=== PATIENT | female | born 2000 | race Two or more races ===

== ENCOUNTER 2025-02-15 09:57 | Outpatient (CLI) | payer OTHER ==
[~2025-02-15] VITALS: Ht 165.1 cm; Wt 91.0 kg
[~2025-02-15 09:57] MED LIST: ALBUTEROL SULFATE 2.5 MG/0.5 ML INH CONCENTRATE NEB SOLN INH PRN; EPINEPHrine INJ 1 MG/ML 1ML AMP IM PRN; diphenhydrAMINE 50 MG/ML VIAL IV PRN
[2025-02-15 10:30] VITALS: BP 120/77; O2SAT 100
[2025-02-15] MEDS: IRON SUCROSE 200 MG IVP IV ONE (11:08)
[2025-02-15 12:00] VITALS: BP 119/67; O2SAT 100
== END 2025-02-15 12:00 ==
LOC: M INFU 09:57
PROVIDERS: ATTEND Nurse Practitioner Family
DX: D64.9 Anemia, unspecified (principal)
CPT/HCPCS: 96374; J1756

== ENCOUNTER → 2025-03-06 | Outpatient (REF) | payer OTHER | LOC: M PLALAB 15:50 | PROVIDERS: ATTEND Advanced Practice Midwife | DX: Z34.80 Encounter for supervision of other normal pregnancy, unspecified trimester (principal); Z36.85 Encounter for antenatal screening for Streptococcus B ==

== ENCOUNTER → 2025-03-27 | Outpatient (CLI) | payer OTHER ==
[2025-03-27 19:03] LABS: PLATELET COUNT, AUTOMATED 319 10^3/uL (150-450)
[2025-03-27 19:27] LABS: IRON (FE) 65.0 UG/DL (50-170)
== END ==
LOC: M PLALAB 16:08
PROVIDERS: ATTEND Nurse Practitioner Family
DX: D50.9 Iron deficiency anemia, unspecified (principal)